=== PATIENT | male | born 1935 ===

== ENCOUNTER 2020-12-25 18:25 | Emergency (ER) | payer MEDICARE ==
--- NOTE | 2020-12-25 19:21 | EDM.PDOC ---
ED HPI GENERAL MEDICAL PROBLEM - General Chief Complaint: Genitourinary Problem Stated Complaint: TROUBLE URINATING Time Seen by Provider: 12/25/20 19:02 Source of Information: Reports: Patient, Family () History Limitations: Reports: No Limitations - History of Present Illness INITIAL COMMENTS - FREE TEXT/NARRATIVE: Mr. Blankenship is a most pleasant 85-year-old gentleman who now presents the ED stating that he has had difficulty urinating, only able to dribble, for the past 24 hours, approximately. He also reports that he feels pain in his penis when he is attempting to urinate. The patient acknowledges that he has had similar issues, not as severe, over the past few years, but he has never had a medical evaluation of it. The patient denies taking any antihistamines recently. Here in the ED, the patient's initial BP is found to be elevated at 176/78, otherwise, he is hemodynamically stable, afebrile, saturating 96% on room air. He appears to be relatively comfortable, in no acute distress. Prior to 24 hours ago, the patient denies having a recent fever, chills, sore throat, ear pain, nasal or sinus congestion, cough, dyspnea, chest pain, palpitations, nausea, vomiting, constipation, diarrhea, abdominal pain, urinary symptoms, recent weight gain or weight loss, recent bloody bowel movements or black bowel movements, recent joint aches, headaches, or rashes. The patient's PCP is CJ Cotter. He has received 2 COVID vaccinations plus a booster, and has received an influenza vaccination this season. Abdominal Pain Score (Numeric/FACES): 5 - Related Data Allergies Allergy/AdvReac Type Severity Reaction Status Date / Time No Known Allergies Allergy Verified 12/25/20 18:51 Home Meds: Home Meds Tamsulosin [Flomax] 1 cap PO QPM #14 cap.er 12/25/20 [Rx] nitrofurantoin macrocrystaL [Macrodantin] 1 cap PO Q12H #13 capsule 12/25/20 [Rx] Past Medical History Genitourinary History: Reports: BPH - Past Surgical History HEENT Surgical History: Reports: Cataract Surgery (bilateral) Social & Family History - Tobacco Use Tobacco Use Status *Q: Never Tobacco User Second Hand Smoke Exposure: No - Caffeine Use Caffeine Use: Reports: None - Alcohol Use Alcohol Use History: Yes Alcohol Use Frequency: Socially - Recreational Drug Use Recreational Drug Use: No - Living Situation & Occupation Living situation: Reports: , with Spouse, with Family (Daughter) Occupation: Retired ED ROS GENERAL - Review of Systems Review Of Systems: Comprehensive ROS is negative, except as noted in HPI. ED EXAM, RENAL/ - Physical Exam Exam: See Below Exam Limited By: No Limitations General Appearance: Alert, No Apparent Distress, Thin Eye Exam: Bilateral Eye: EOMI, Normal Inspection Ears: Normal External Exam, Hearing Grossly Normal Nose: Normal Inspection Throat/Mouth: Normal Inspection, Normal Lips, Normal Voice, No Airway Compromise Head: Atraumatic, Normocephalic Neck: Normal Inspection, Full Range of Motion Respiratory/Chest: No Respiratory Distress, Lungs Clear, Normal Breath Sounds, No Accessory Muscle Use Cardiovascular: Normal Peripheral Pulses, Regular Rate, Rhythm, No Edema, No Gallop, No JVD, No Murmur, No Rub GI/Abdominal: Normal Bowel Sounds, Soft, No Organomegaly, No Distention, No Abnormal Bruit, Tender (Suprapubic region only. Nontender elsewhere.), Mass (palpable urinary bladder) Back Exam: Normal Inspection, Full Range of Motion, NT Extremities: Normal Inspection, Normal Range of Motion, No Pedal Edema, Normal Capillary Refill Neurological: Alert, Oriented, Normal Cognition, No Motor/Sensory Deficits Psychiatric: Normal Affect Skin Exam: Warm, Dry, Intact, Normal Color, No Rash Course - Vital Signs Last Recorded V/S: Last Vital Signs Temp 36.2 C 12/25/20 18:48 Pulse 92 12/25/20 18:48 Resp 18 12/25/20 18:48 BP 176/78 H 12/25/20 18:48 Pulse Ox 96 12/25/20 18:48 - Orders/Labs/Meds Orders: Active Orders 24 hr Category Date Time Status Bladder Scan [RC] ASDIRECTED Care 12/25/20 19:16 Active Rouse Catheter Insertion [Insert Urinary Catheter] [OM. Care 12/25/20 20:15 Ordered PC] Q24H Urinary Catheter Assessment [RC] ASDIRECTED Care 12/25/20 20:13 Ordered CULTURE URINE [MREF] Stat Lab 12/25/20 20:12 Ordered Nitrofurantoin Waller/Macrocryst [Macrobid] Med 12/25/20 20:13 Stat 100 mg PO ONETIME STA Tamsulosin [Flomax] Med 12/25/20 20:14 Once 0.4 mg PO ONETIME ONE Labs: Laboratory Tests 12/25/20 Range/Units 19:32 Urine Color Wilson H (Yellow) Urine Appearance Cloudy H (Clear) Urine pH 6.0 (5.0-8.0) Ur Specific [place] 1.025 (1.005-1.030) Urine Protein 3+ H (Negative) Urine Glucose (UA) Negative (Negative) Urine Ketones Negative (Negative) Urine Occult Blood 3+ H (Negative) Urine Nitrite Negative (Negative) Urine Bilirubin Negative (Negative) Urine Urobilinogen 0.2 (0.2-1.0) Ur Leukocyte Esterase 2+ H (Negative) Urine RBC Too numerous to cnt H (0-5) /hpf Urine WBC Too numerous to cnt H (0-5) /hpf Ur Epithelial Cells 30-40 H (0-5) /hpf Urine Bacteria Many H (FEW) /hpf Urine Mucus Rare (FEW) /hpf - Re-Assessments/Exams Free Text/Narrative Re-Assessment/Exam: 12/25/20 19:21 A post void bladder scan will be obtained. Presuming it reveals >300 mL of retained urine, a Rouse catheter will be placed, and a urine sample for urinalys is will be collected. 12/25/20 20:14 Notified that the post-void bladder scan indicated about 400 mL of retained urine. A Rouse catheter was placed, and has now drained about 450 mL of urine. The patient's urinalysis is remarkable for orange cloudy appearance, 3+ occult blood with too numerous to count RBCs, 2+ leukocyte esterase with too numerous to count WBCs, nitrate negative with many bacteria, and 30-40 epithelial cells. A urine culture has been ordered, and the patient will be started on nitrofurantoin and tamsulosin. 12/25/20 20:22 The above was discussed with the patient and his . I will discharge him home with a referral to Dr. Carter, however, if he cannot get into see Dr. Carter within a week or so, I would like him to follow-up with CJ Cotter for removal of the catheter. Departure - Departure Time of Disposition: 20:24 Disposition: Home, Self-Care 01 Condition: Good Clinical Impression: Urinary obstruction, Cystitis - Discharge Information *PRESCRIPTION DRUG MONITORING PROGRAM REVIEWED*: Not Applicable *COPY OF PRESCRIPTION DRUG MONITORING REPORT IN PATIENT LINDA: Not Applicable Referrals: Trevor Narvaez PA-C [Primary Care Provider] - Jerod Carter MD [Ordering Only Provider] - Forms: ED Department Discharge Additional Instructions: You were seen in the emergency room after having difficulty urinating for the past 24 hours or so. Work-up in the ER included a bladder scan, which indicated about 400 mL of urine in your bladder. A Rouse catheter was placed, draining over 450 mL of urine. A urinalysis indicates that you have a urinary tract infection. A sample of your urine has been sent for culture. You have been started on the antibiotic nitrofurantoin, along with the bladder- shrinking medicine tamsulosin (Flomax), and prescriptions for both nitrofurantoin and tamsulosin have been sent to the [facility] located in the [employer] [facility]. Take 1 tablet of nitrofurantoin every 12 hours, starting tomorrow morning, 12/26/2020, as prescribed. Finish the entire prescription unless told otherwise by a doctor. Take 1 tablet of tamsulosin every evening, starting tomorrow evening, 12/26/2020, as prescribed. Stay adequately hydrated. It does not really matter what type of fluid you drink. Empty your Rouse bag as instructed by your nurse. Make sure that when you are lying down or sleeping, that the bag is below your body height, so that urine does not backflow into your bladder. Please contact the office of your PCP, CJ Cotter, this coming Thursday, to check on your urine culture results, to make sure that you are on the correct antibiotic. Please follow-up with the Urologist Dr. Jerod Carter, in [place], at the next available appointment. If you cannot get in to see Dr. Carter within about a week or so, please follow-up with your PCP, CJ Cotter, for removal of your catheter. If any other problems, please do not hesitate to return to the ER. Sepsis Event Note (ED) - Evaluation Sepsis Screening Result: No Definite Risk - Focused Exam Vital Signs: Vital Signs Temp Pulse Resp BP Pulse Ox 12/25/20 18:48 36.2 C 92 18 176/78 H 96 - My Orders Last 24 Hours: My Active Orders 12/25/20 19:16 Bladder Scan [RC] ASDIRECTED 12/25/20 20:12 CULTURE URINE [MREF] Stat 12/25/20 20:13 Urinary Catheter Assessment [RC] ASDIRECTED 12/25/20 20:13 Nitrofurantoin Waller/Macrocryst [Macrobid] 100 mg PO ONETIME STA 12/25/20 20:14 Tamsulosin [Flomax] 0.4 mg PO ONETIME ONE 12/25/20 20:15 Rouse Catheter Insertion [Insert Urinary Catheter] [OM.PC] Q24H - Assessment/Plan Last 24 Hours: My Active Orders 12/25/20 19:16 Bladder Scan [RC] ASDIRECTED 12/25/20 20:12 CULTURE URINE [MREF] Stat 12/25/20 20:13 Urinary Catheter Assessment [RC] ASDIRECTED 12/25/20 20:13 Nitrofurantoin Waller/Macrocryst [Macrobid] 100 mg PO ONETIME STA 12/25/20 20:14 Tamsulosin [Flomax] 0.4 mg PO ONETIME ONE 12/25/20 20:15 Rouse Catheter Insertion [Insert Urinary Catheter] [OM.PC] Q24H
[2020-12-25] MEDS ORDERED: Nitrofurantoin Monohydrate/Macrocrystalline 100 MG Cap PO STA (20:13)
[2020-12-25] MEDS ORDERED: Tamsulosin 0.4 MG Cap.ER PO ONE (20:14)
== END 2020-12-25 20:45 | disposition home or self-care (01) ==
LOC: JD.ED 18:25
DX: N30.90 Cystitis, unspecified without hematuria (principal); N13.9 Obstructive and reflux uropathy, unspecified
CPT/HCPCS: 51702; 51798; 81001; 87086; 99283; A9270; 99284